=== PATIENT | female | born 1940 | race Asian ===

== ENCOUNTER 2018-09-30 11:36 | Emergency (ER) | payer MEDICARE ==
[~2018-09-30] VITALS: Ht 154.9 cm; Wt 55.0 kg
[2018-09-30] MEDS ORDERED: HYDROCODONE/ACETAMINOPHEN 5/325MG TABLET PO ONE (13:45)
[2018-09-30 15:22] VITALS: BP 146/63
== END 2018-09-30 15:24 | disposition home or self-care (01) ==
LOC: ER 11:36
DX: S20.212A Contusion of left front wall of thorax, initial encounter (principal); S20.211A Contusion of right front wall of thorax, initial encounter; S80.12XA Contusion of left lower leg, initial encounter; V49.59XA Passenger injured in collision with other motor vehicles in traffic accident, initial encounter; Y93.89 Activity, other specified; Y92.410 Unspecified street and highway as the place of occurrence of the external cause; R03.0 Elevated blood-pressure reading, without diagnosis of hypertension
CPT/HCPCS: 71046; 73590; 99283